=== PATIENT | female | born 1925 | race Caucasian/White ===

== ENCOUNTER → 2016-11-13 | Outpatient (CLI) | payer MEDICARE, BC, MEDICAID ==
[~2016-11-13] MED LIST: ALBU18HF2 ORAL INH; ASPI-558 PO; CEPH-583 PO; FAMO20TA6 PO; FEXO-118 PO; FURO-33 PO; GUAI-1210 PO; INSU100I3 SQ; INSU3INS3 SQ; LEVO500T63 PO; MICO142O TOP; MINE120C3 TOP; MULT-245 PO; PROP15DR30 BOTH EYES; SENN-152 PO; SPIR25TA PO; TRIA15CR3 TOP; [UNRECOGNIZED DRUG - CODE] PO
[2016-11-13 08:11] LABS: ANION GAP 9 MEQ/L (5-15); BUN/CREATININE RATIO 33 RATIO (6-26); CALCIUM 10.2 MG/DL (8.4-10.2); CHLORIDE 95 MEQ/L (98-107); CO2 - CARBON DIOXIDE 34 MEQ/L (22-30); CREATININE 0.8 MG/DL (0.7-1.2); GLOMERULAR FILTRATION RATE 68; GLUCOSE 126 MG/DL (65-110); POTASSIUM 4.5 MEQ/L (3.6-5); SODIUM 138 MEQ/L (134-144)
[2016-11-13 09:03] LABS: HEMOGLOBIN A1C 6.3 % (6.1-7.9)
== END ==
LOC: LABNH.AP 00:38
PROVIDERS: ATTEND Family Medicine
DX: E11.9 Type 2 diabetes mellitus without complications (principal)
CPT/HCPCS: 36415; 80048; 83036